=== PATIENT | female | born 1945 | race Caucasian/White ===

== ENCOUNTER 2016-10-31 23:13 | Inpatient (IN) | payer MEDICARE, OTHER ==
[2016-10-31] MEDS ORDERED: IPRATROPIUM/ALBUTEROL 0.5-2.5 MG/3 ML AMPUL NEB ONE (23:22)
--- NOTE | 2016-10-31 23:23 | ER Document Report ---
ED Respiratory Problem - General Mode of Arrival: Medic Information source: Patient, Emergency Med Personnel TRAVEL OUTSIDE OF THE [place] IN LAST 30 DAYS: No - HPI Patient complains to provider of: Short of breath Onset: Last week Duration: Worse/persistent Context: Hx COPD Short of Breath: Mild Associated symptoms: Fever, Sore Throat, Other - Nasal congestion Similar symptoms previously: Yes Recently seen / treated by doctor: Yes <CARLO GARNER - Last Filed: 11/01/16 00:10> <FROYLAN HSU - Last Filed: 11/01/16 05:23> - General Stated Complaint: DIFFICULTY BREATHING Notes: Patient is a 71-year-old female that presents to the emergency department today with complaints of shortness of breath 1 week. Patient went to an urgent care today for shortness of breath and was started on prednisone and azithromycin. Patient states her shortness of breath is much worse with exertion. Patient states she is on 2L of home O2 daily. EMS reports on arrival, the patient had an oxygen saturation 92%. EMS administered 1 duoneb and 1 Solu-Medrol in route. Patient states she had a "low-grade fever" at home along with nasal congestion and a sore throat. Patient is in mild respiratory distress. (CARLO GARNER) - Related Data Allergies/Adverse Reactions: ciprofloxacin [From Cipro] Allergy (Intermediate, Verified 11/01/16 00:27) ciprofloxacin HCl [From Cipro] Allergy (Intermediate, Verified 11/01/16 00:27) clindamycin [Clindamycin] Allergy (Intermediate, Verified 11/01/16 00:27) Past Medical History - General Information source: Patient, [facility] Records - Social History Smoking Status: Current Every Day Smoker Cigarette use (# per day): Yes Frequency of alcohol use: None Drug Abuse: None Lives with: Family Family History: Reviewed & Not Pertinent, DM Pulmonary Medical History: Reports: Hx Asthma, Hx COPD, Hx Pneumonia Endocrine Medical History: Reports: Hx Diabetes Mellitus Type 2 Musculoskeltal Medical History: Reports Hx Arthritis Psychiatric Medical History: Reports: Hx Depression Past Surgical History: Reports: Hx Abdominal Surgery - lap band, bowel resection , Hx Appendectomy, Hx Breast Surgery - reduction, Hx Cholecystectomy, Hx Hysterectomy, Hx Thyroid Surgery - thyroidectomy - Immunizations Hx Diphtheria, Pertussis, Tetanus Vaccination: Yes - 05/18/13 Hx Pneumococcal Vaccination: 05/18/13 <CARLO GARNER - Last Filed: 11/01/16 00:10> Review of Systems - Review of Systems Constitutional: See HPI, Fever EENT: See HPI, Nose congestion, Throat pain Cardiovascular: No symptoms reported Respiratory: See HPI, Short of breath Gastrointestinal: No symptoms reported Genitourinary: No symptoms reported Female Genitourinary: No symptoms reported Musculoskeletal: No symptoms reported Skin: No symptoms reported Hematologic/Lymphatic: No symptoms reported Neurological/Psychological: No symptoms reported -: Yes All other systems reviewed and negative <CARLO GARNER - Last Filed: 11/01/16 00:10> Physical Exam - Vital signs Interpretation: Tachycardic <CARLO GARNER - Last Filed: 11/01/16 00:10> <FROYLAN HSU - Last Filed: 11/01/16 05:23> - Vital signs Vitals: Temp 99.4 F 10/31/16 23:20 (FROYLAN HSU) - Notes Notes: Physical Exam: General: Alert, appears to be in mild distress secondary to shortness of breath. HEENT: Normocephalic. Atraumatic. PERRL. Extraocular movements intact. Oropharynx clear. Neck: Supple. Non-tender. Respiratory: Mild respiratory distress. Wheezing throughout. Mild retractions. Decreased breath sounds at the bases bilaterally. Cardiovascular: Tachycardic, regular rhythm. Abdominal: Normal Inspection. Non-tender. No distension. Normal Bowel Sounds. Back: Non-tender. No deformity or step off. Extremities: Moves all four extremities. Upper extremities: Normal inspection. Normal ROM. Lower extremities: Normal inspection. No edema. Normal ROM. Neurological: Normal cognition. AAOx4. Normal speech. Psychological: Normal affect. Normal Mood. Skin: Warm. Dry. Normal color. (CARLO GARNER) Course - Laboratory Result Diagrams: 10/31/16 23:40 10/31/16 23:40 <CARLO GARNER - Last Filed: 11/01/16 00:10> - Laboratory Result Diagrams: 10/31/16 23:40 10/31/16 23:40 <FROYLAN HSU - Last Filed: 11/01/16 05:23> - Re-evaluation Re-evalutation: 11/01/16 Patient with COPD exacerbation, hypoxia, a right lower lobe pneumonia. Continues to wheeze despite DuoNeb, Solu-Medrol, and magnesium. Has failed outpatient treatment with azithromycin. Allergy to Levaquin. Patient given cefepime and doxycycline. Blood culture sent. Patient will be admitted to the hospital service. Discussed with daughter who agrees with this plan. Stable time of admission. (FROYLAN HSU) - Vital Signs Vital signs: Temp Pulse Resp BP Pulse Ox 98.0 F 96 25 H 114/65 95 11/01/16 04:04 11/01/16 04:04 11/01/16 04:04 11/01/16 04:04 11/01/16 04:04 (FROYLAN HSU) - Laboratory Laboratory results interpreted by me: 10/31/16 10/31/16 10/31/16 23:40 23:40 23:40 Hgb 9.4 L Hct 30.5 L MCV 69 L MCH 21.2 L MCHC 30.9 L RDW 20.3 H Carbon Dioxide 32 H Glucose 113 H POC Glucose Iron < 10 L Ferritin 10.60 L 11/01/16 00:46 Hgb Hct MCV MCH MCHC RDW Carbon Dioxide Glucose POC Glucose 186 H Iron Ferritin (FROYLAN HSU) Critical Care Note - Critical Care Note Total time excluding time spent on procedures (mins): 45 - evaluation and management of respiratory distress, multiple re-evaluations, hypoxia, pneumonia , counseling of patient, coordination of admission <FROYLAN HSU - Last Filed: 11/01/16 05:23> Discharge <CARLO GARNER - Last Filed: 11/01/16 00:10> - Discharge Admitting Provider: Hospitalist Unit Admitted: IMCU <FROYLAN HSU - Last Filed: 11/01/16 05:23> - Discharge Clinical Impression: COPD exacerbation, Hypoxia, Possible pneumonia Condition: Stable Disposition: ADMITTED INPATIENT Scribe Attestation: 11/01/16 05:22 I personally performed the services described in the documentation, reviewed and edited the documentation which was dictated to the scribe in my presence, and it accurately records my words and actions. (FROYLAN HSU) Scribe Documentation - Scribe Written by Scribe:: Mita Torres, 11/01/2016 [id number] acting as scribe for :: Mindy <CARLO GARNER - Last Filed: 11/01/16 00:10>
--- NOTE | 2016-10-31 23:49 | EKG REPORT ---
SEVERITY:- ABNORMAL ECG - SINUS RHYTHM BORDERLINE LEFT AXIS DEVIATION CONSIDER ANTEROSEPTAL INFARCT BORDERLINE PROLONGED QT INTERVAL : Confirmed by: Debra Chávez 31-Oct-2016 23:48:21
[2016-10-31 23:53] LABS: ABSOLUTE EOSINOPHILS # (AUTO) 0.1 10^3/uL (0.0-0.6); ABSOLUTE LYMPHOCYTES (AUTO) 1.3 10^3/uL (0.5-4.7); ABSOLUTE MONOCYTES (AUTO) 0.5 10^3/uL (0.1-1.4); ABSOLUTE NEUT (AUTO) 6.6 10^3/uL (1.7-8.2); BASOPHILS % (AUTO) 0.4 % (0-2); EOSINOPHILS % (AUTO) 0.8 % (0-6); HEMATOCRIT 30.5 % (36.0-47.0); HEMOGLOBIN 9.4 g/dL (12.0-15.5); HGB HCT DIFFERENCE -2.3; LYMPHOCYTES % (AUTO) 15.3 % (13-45); MEAN CORPUSCULAR HEMOGLOBIN 21.2 pg (27.0-33.4); MEAN CORPUSCULAR HGB CONC 30.9 g/dL (32.0-36.0); MEAN CORPUSCULAR VOLUME 69 fl (80-97); MONOCYTES % (AUTO) 6.1 % (3-13); RED BLOOD COUNT 4.45 10^6/uL (3.72-5.28); RED CELL DISTRIBUTION WIDTH 20.3 % (11.5-14.0); SEGMENTED NEUTROPHILS % (AUTO) 77.4 % (42-78); WHITE BLOOD COUNT 8.5 10^3/uL (4.0-10.5)
[2016-11-01] MEDS: MAGNESIUM SULFATE/D5W 100 ML IV SCH ×2 (00:02→00:42)
[2016-11-01 00:11] LABS: ALANINE AMINOTRANSFERASE 14 U/L (9-52); ALBUMIN 3.5 g/dL (3.5-5.0); ALKALINE PHOSPHATASE 66 U/L (38-126); ANION GAP 6 (5-19); ASPARTATE AMINO TRANSFERASE 15 U/L (14-36); BILIRUBIN,TOTAL 0.4 mg/dL (0.2-1.3); BLOOD UREA NITROGEN 8 mg/dL (7-20); CALCIUM 8.5 mg/dL (8.4-10.2); CARBON DIOXIDE 32 mmol/L (22-30); CHLORIDE 104 mmol/L (98-107); CREATININE RESULT 0.53 mg/dL (0.52-1.25); GLUCOSE 113 mg/dL (75-110); POTASSIUM 3.8 mmol/L (3.6-5.0); TOTAL PROTEIN 6.4 g/dL (6.3-8.2)
[2016-11-01 00:12] LABS: PROTHROMBIN TIME 14.3 SEC (11.4-15.4)
[2016-11-01] MEDS ORDERED: IPRATROPIUM/ALBUTEROL 0.5-2.5 MG/3 ML AMPUL NEB ONE (01:37)
[2016-11-01] MEDS ORDERED: CEFEPIME 2 GM/D5W RTU 50 ML IV ONE (01:38)
[2016-11-01 01:41] LABS: APPEARANCE,URINE CLEAR; BILIRUBIN,URINE NEGATIVE (NEGATIVE); GLUCOSE, URINE NEGATIVE (NEGATIVE); KETONES,URINE NEGATIVE (NEGATIVE); LEUKOCYTE ESTERASE,URINE NEGATIVE (NEGATIVE); NITRITE,URINE NEGATIVE (NEGATIVE); PROTEIN,URINE NEGATIVE (NEGATIVE); UROBILINOGEN,URINE NEGATIVE mg/dL (<2.0)
[2016-11-01 01:47] LABS: VENOUS BLOOD BASE EXCESS 3.3 mmol/L; VENOUS BLOOD HCO3 29.7 mmol/L (20-32); VENOUS BLOOD PCO2 54.1 mmHg (35-63); VENOUS BLOOD PH 7.36 (7.30-7.42)
[2016-11-01] MEDS ORDERED: DOXYCYCLINE HYCLATE INJ 100 MG VIAL IV ONE (01:56)
[2016-11-01] MEDS ORDERED: DOCUSATE SODIUM 100 MG CAPSULE PO PRN (02:00)
[2016-11-01] MEDS ORDERED: INSULIN LISPRO 100 UNIT/ML 3 ML VIAL SUBCUT PRN (02:02)
[2016-11-01] MEDS ORDERED: GUAIFENESIN SYRP 200 MG/10 ML UDC PO PRN (02:02)
[2016-11-01] MEDS ORDERED: DEXTROSE 40% GEL 15 GM TUBE PO PRN ×2 (02:02)
[2016-11-01] MEDS ORDERED: DEXTROSE 50%-WATER 25 GM/50 ML DISP.SYRIN IV PRN ×2 (02:02)
[2016-11-01] MEDS ORDERED: GLUCAGON,HUMAN RECOMB 1 MG INJ IM PRN (02:02)
[2016-11-01] MEDS ORDERED: ACETAMINOPHEN 325 MG TABLET PO PRN (02:02)
[2016-11-01] MEDS ORDERED: CEFEPIME 2 GM/D5W RTU 2 GM/50 ML RTUPB IV ONE (02:06)
[2016-11-01] MEDS ORDERED: PREDNISONE 20 MG TABLET PO SCH (02:15)
[2016-11-01 03:54] LABS: FOLATE 7.55 ng/mL (>2.76)
[2016-11-01] MEDS ORDERED: HEPARIN SOD (PORCINE) 5,000 UNIT/ML 1 ML SYRINGE SUBCUT SCH (06:00)
[2016-11-01] MEDS ORDERED: LEVOTHYROXINE SODIUM 0.15 MG TABLET PO SCH (06:00)
--- NOTE | 2016-11-01 06:08 | PDOC H&P ---
History of Present Illness Admission Date/PCP: 11/01/16 02:02 Patient complains of: Shortness of breath and cough History of Present Illness: REBA LYN is a 71 year old female with a past medical history of COPD and home oxygen dependence, who had been her usual state of health until approximately 24 hours prior to presentation recently returning from vacation and concerned for exposure to ill contacts developing pharyngitis and a nonproductive cough she sought evaluation with primary care who initiated azithromycin of the last 3 days without significant improvement prompting his seek evaluation emergency room where she's found to have a COPD exacerbation and referred to the hospitalist for admission. Past Medical History Cardiac Medical History: Denies: Coronary Artery Disease, Myocardial Infarction, Hypertension Pulmonary Medical History: Reports: Asthma, Chronic Obstructive Pulmonary Disease (COPD), Pneumonia Denies: Bronchitis Neurological Medical History: Denies: Seizures Endocrine Medical History: Reports: Diabetes Mellitus Type 2 Musculoskeltal Medical History: Reports: Arthritis Psychiatric Medical History: Reports: Depression, Tobacco Dependency Hematology: Denies: Anemia Past Surgical History Past Surgical History: Reports: Appendectomy, Cholecystectomy, Hysterectomy Social History Lives with: Family Smoking Status: Current Every Day Smoker Cigarettes Packs Per Day: 1 Drugs: None - Advance Directive Resuscitation Status: Full Code Family History Family History: Reviewed & Not Pertinent, COPD, DM Parental Family History Reviewed: Yes Children Family History Reviewed: Yes Sibling(s) Family History Reviewed.: Yes Medication/Allergy Home Medications: Levothyroxine Sodium [Synthroid 150 Mcg Tablet] 150 mcg PO DAILY 07/11/13 Trazodone HCl [Desyrel] 300 mg PO DAILY 07/11/13 Azithromycin [Zithromax 250 mg Tablet] 250 mg PO ASDIR PRN #6 tablet 07/22/16 Prednisone [Deltasone 20 mg Tablet] 2 tab PO DAILY 4 Days 07/22/16 Allergies/Adverse Reactions: ciprofloxacin [From Cipro] Allergy (Intermediate, Verified 11/01/16 00:27) ciprofloxacin HCl [From Cipro] Allergy (Intermediate, Verified 11/01/16 00:27) clindamycin [Clindamycin] Allergy (Intermediate, Verified 11/01/16 00:27) Physical Exam Vital Signs: Temp Pulse Resp BP Pulse Ox 98.0 F 96 25 H 114/65 95 11/01/16 04:04 11/01/16 04:04 11/01/16 04:04 11/01/16 04:04 11/01/16 04:04 Results Impressions: Chest X-Ray 11/01/16 00:00 IMPRESSION: No acute radiographic finding in the chest. Assessment & Plan - Diagnosis (1) Acute exacerbation of chronic bronchitis Is this a current diagnosis for this admission?: YesPlan: Empiric antibiotics symptomatic management consider repeat chest imaging. (2) COPD exacerbation Is this a current diagnosis for this admission?: YesPlan: Observed on a monitored bed albuterol Atrovent nebulizer, prednisone, incentive spirometry, ambulation. - Time Time Spent: 30 to 50 Minutes
[2016-11-01 06:58] LABS: HEMATOCRIT 32.4 % (36.0-47.0); HEMOGLOBIN 9.8 g/dL (12.0-15.5); MEAN CORPUSCULAR HEMOGLOBIN 20.8 pg (27.0-33.4); MEAN CORPUSCULAR HGB CONC 30.3 g/dL (32.0-36.0); MEAN CORPUSCULAR VOLUME 69 fl (80-97); RED BLOOD COUNT 4.71 10^6/uL (3.72-5.28); RED CELL DISTRIBUTION WIDTH 19.9 % (11.5-14.0); WHITE BLOOD COUNT 8.2 10^3/uL (4.0-10.5)
[2016-11-01 07:13] LABS: ANION GAP 11 (5-19); BLOOD UREA NITROGEN 6 mg/dL (7-20); CALCIUM 8.9 mg/dL (8.4-10.2); CARBON DIOXIDE 27 mmol/L (22-30); CHLORIDE 106 mmol/L (98-107); CREATININE RESULT 0.45 mg/dL (0.52-1.25); GLUCOSE 176 mg/dL (75-110); POTASSIUM 3.8 mmol/L (3.6-5.0); SODIUM 144.2 mmol/L (137-145)
[2016-11-01 07:17] LABS: BASOPHILS % (MANUAL) 0 % (0-2); EOSINOPHILS % (MANUAL) 0 % (0-6); LYMPHOCYTES % (MANUAL) 2 % (13-45); TOTAL CELLS COUNTED 100
[2016-11-01 07:19] LABS: ANISOCYTOSIS 2+; MICROCYTOSIS 2+; OVALOCYTES SLIGHT; POIKILOCYTOSIS SLIGHT; TOXIC GRANULATION SLIGHT
[2016-11-01] MEDS ORDERED: METFORMIN HCL 500 MG TABLET PO SCH (08:00)
[2016-11-01] MEDS: IPRATROPIUM/ALBUTEROL 0.5-2.5 MG/3 ML AMPUL NEB SCH ×2 (08:27→13:31)
[2016-11-01] MEDS ORDERED: SERTRALINE HCL 50 MG TABLET PO SCH (10:00)
[2016-11-01] MEDS ORDERED: IRON POLYSACCHARIDES COMPLEX 150 MG CAPSULE PO SCH ×2 (10:00)
[2016-11-01] MEDS ORDERED: TRAZODONE HCL 50 MG TABLET PO SCH ×2 (10:00→22:00)
[2016-11-01] MEDS ORDERED: GUAIFENESIN 600 MG TABLET.SA PO SCH (10:00)
[2016-11-01] MEDS ORDERED: CEFEPIME HCL 2 GM in DEXTROSE 5%-WATER 50 ML IV SCH (10:00)
[2016-11-01] MEDS ORDERED: (PENDING PHARMACY ID) (Trazodone Hcl [Desyrel] 300 MG) PO SCH ×2 (10:00→22:00)
[2016-11-01] MEDS ORDERED: CEFEPIME 2 GM/D5W RTU 50 ML IV SCH (10:00)
[2016-11-01] MEDS ORDERED: (PENDING PHARMACY ID) (Metformin Hcl [Glucophage Xr 500 Mg Tablet] 500 MG) PO SCH (10:00)
[2016-11-01] MEDS ORDERED: TIOTROPIUM BROMIDE DPI 5 CAP/KIT (18 MCG/CAP) IH ONE (13:30)
[2016-11-01 14:50] VITALS: BP 127/61
--- NOTE | 2016-11-01 15:19 | PDOC DISCHARGE SUMMARY ---
General - Admit/Disc Date/PCP Admission Date/Primary Care Provider: 11/01/16 02:02 Discharge Date: 11/01/16 - Additional Information Resuscitation Status: Full Code Discharge Activity: Activity As Tolerated Home Medications: Acetaminophen [Tylenol 325 mg Tablet] 650 mg PO Q4HP PRN tablet 11/01/16 Budesonide/Formoterol Fumarate [Symbicort HFA 160-4.5 mcg Inhaler 6 gm] 2 puff IH Q12 #1 inhaler 11/01/16 Doxycycline Hyclate [Vibramycin 100 mg Tablet] 100 mg PO Q12 #20 tablet Guaifenesin [Mucinex Sr 600 mg Tablet.sa] 600 mg PO Q12 tablet.sa 11/01/16 Iron Polysaccharides Complex [Nu-Iron 150 Capsule] 150 mg PO DAILY #30 capsule 11/01/16 Levothyroxine Sodium [Synthroid 0.075 mg Tablet] 0.075 mg PO QHS tablet Levothyroxine Sodium [Synthroid] 175 mcg PO QHS 11/01/16 Metformin HCl [Glucophage] 500 mg PO BID #1 tablet 11/01/16 Sertraline HCl [Zoloft 50 mg Tablet] 50 mg PO DAILY tablet 11/01/16 Trazodone HCl [Desyrel] 300 mg PO QHS 11/01/16 History of Present Illness Patient complains of: Increasing shortness of breath, cough and wheezing History of Present Illness: REBA LYN is a 71 year old female who presents to [facility] ER, with complaints of increasing dyspnea and shortness of breath. She states she was in her usual state of health until approximately 24 hours prior to her arrival. She had just recently returned from a vacation in [place] and was concerned for exposure to ill contacts. She had is sinus drainage sore throat and low-grade fever. She was seen yesterday by her primary care provider and prescribed Z-Victor Hugo and prednisone taper. She had taken 1 dose of the azithromycin and 1 dose of prednisone before her arrival here. She was found to be saturating 90% on 2 L she does wear oxygen 24 7. She normally wears 2 L/m. She has had a productive cough which has worsened over the period of the day. She does have some expiratory wheezing as well. She was given nebulizer treatments and referred to the hospitalist for admission. Hospital Course Hospital Course: The patient was referred to the hospitalist service for admission. She is placed on CPAP overnight. This morning she feels much improved, she is no longer wheezing or dyspnea. She is asking to be discharged home. We had the nurse ambulate her with her oxygen on at 2 L her oxygen saturation stayed greater than 93%. She did not become tachycardic. Therefore we'll discharge her home. We have added doxycycline 100 mg twice a day for the next 10 days. Complete her azithromycin and prednisone taper. We also added symbicort inhaler bid . Physical Exam Vital Signs: Temp Pulse Resp BP Pulse Ox 97.9 F 85 16 127/61 H 98 11/01/16 14:45 11/01/16 14:45 11/01/16 14:45 11/01/16 14:45 11/01/16 14:45 Intake & Output 10/31/16 11/01/16 11/02/16 06:59 06:59 06:59 Intake Total 450 Output Total 550 Balance -100 Weight 68.3 kg General appearance: PRESENT: no acute distress, well-developed, well-nourished Head exam: PRESENT: atraumatic, normocephalic Eye exam: PRESENT: conjunctiva pink, EOMI, PERRLA. ABSENT: scleral icterus Ear exam: PRESENT: normal external ear exam Mouth exam: PRESENT: moist, neck supple, tongue midline Throat exam: PRESENT: post pharyngeal erythema Respiratory exam: PRESENT: clear to auscultation enrique. ABSENT: rales, rhonchi, wheezes Cardiovascular exam: PRESENT: RRR. ABSENT: diastolic murmur, rubs, systolic murmur Pulses: PRESENT: normal dorsalis pedis pul Vascular exam: PRESENT: normal capillary refill GI/Abdominal exam: PRESENT: normal bowel sounds, soft. ABSENT: distended, guarding, mass, organolmegaly, rebound, tenderness Rectal exam: PRESENT: deferred Extremities exam: PRESENT: full ROM. ABSENT: calf tenderness, clubbing, pedal edema Neurological exam: PRESENT: alert, awake, oriented to person, oriented to place , oriented to time, oriented to situation, CN II-XII grossly intact. ABSENT: motor sensory deficit Psychiatric exam: PRESENT: appropriate affect, normal mood. ABSENT: homicidal ideation, suicidal ideation Skin exam: PRESENT: dry, intact, warm. ABSENT: cyanosis, rash Results Laboratory Results: 11/01/16 06:33 11/01/16 06:33 11/01/16 11/01/16 06:33 06:33 WBC 8.2 RBC 4.71 Hgb 9.8 L Hct 32.4 L MCV 69 L MCH 20.8 L MCHC 30.3 L RDW 19.9 H Plt Count 304 Seg Neutrophils % Not Reportable Lymphocytes % Not Reportable Monocytes % Not Reportable Eosinophils % Not Reportable Basophils % Not Reportable Absolute Neutrophils Not Reportable Absolute Lymphocytes Not Reportable Absolute Monocytes Not Reportable Absolute Eosinophils Not Reportable Absolute Basophils Not Reportable Sodium 144.2 Potassium 3.8 Chloride 106 Carbon Dioxide 27 Anion Gap 11 BUN 6 L Creatinine 0.45 L Est GFR ( Amer) > 60 Est GFR (Non-Af Amer) > 60 Glucose 176 H Calcium 8.9 Impressions: Chest X-Ray 11/01/16 00:00 IMPRESSION: No acute radiographic finding in the chest. Qualifiers PATEINT BEING DISCHARGED WITH ANY OF THE FOLLOWING DIAGNOSIS?: No Plan Discharge Plan: Discharge home with family Time Spent: Less than 30 Minutes
[2016-11-01] MEDS ORDERED: DOXYCYCLINE HYCLATE 100 MG TABLET PO SCH (22:00)
[2016-11-01] MEDS ORDERED: LEVOTHYROXINE SODIUM 0.075 MG TABLET PO SCH (22:00)
[2016-11-01] MEDS ORDERED: (PENDING PHARMACY ID) (Levothyroxine Sodium [Synthroid] 175 MCG) PO SCH (22:00)
[2016-11-01] MEDS ORDERED: LEVOTHYROXINE SODIUM 0.1 MG TABLET PO SCH (22:00)
[2016-11-02] MEDS ORDERED: TIOTROPIUM BROMIDE DPI 5 CAP/KIT (18 MCG/CAP) IH SCH (10:00)
== END 2016-11-01 16:30 | disposition home or self-care (01) | DRG 192 ==
LOC: ER 23:13 → EH 11-01 02:02 → UNDOADMIN 11-01 02:13 → 4N 11-01 04:58
PROVIDERS: ADMIT Internal Medicine; ATTEND Internal Medicine
PROC: 5A09357 Assistance with Respiratory Ventilation, Less than 24 Consecutive Hours, Continuous Positive Airway Pressure (ICD-10-PCS; principal; 2016-11-01)
DX: J44.1 Chronic obstructive pulmonary disease with (acute) exacerbation (principal); D50.9 Iron deficiency anemia, unspecified; R09.02 Hypoxemia; Z99.81 Dependence on supplemental oxygen; J45.909 Unspecified asthma, uncomplicated; D11.9 Benign neoplasm of major salivary gland, unspecified; M19.90 Unspecified osteoarthritis, unspecified site; F17.210 Nicotine dependence, cigarettes, uncomplicated; Z90.49 Acquired absence of other specified parts of digestive tract; Z90.710 Acquired absence of both cervix and uterus; Z88.1 Allergy status to other antibiotic agents; Z83.3 Family history of diabetes mellitus
CPT/HCPCS: 36415; 71010; 80048; 80053; 81001; 82607; 82728; 82746; 82803; 82962; 83540; 83550; 83605; 83880; 84484; 85025; 85045; 85610; 87040; 87086; 93005; 93010; 94640; 94660; 94799; 96365; 99291; J0692; J1644; J3475; J3490; J7512; J7620

== ENCOUNTER 2017-01-22 08:40 | Day surgery (SDC) | payer MEDICARE, OTHER ==
[~2017-01-22 08:40] MED LIST: PROPOFOL INJ 200 MG/20 ML VIAL IV ONE
[2017-01-22 11:17] VITALS: BP 108/61
--- NOTE | 2017-01-22 14:46 | Operative Report ---
Operative Report DATE OF SURGERY: 01/22/17 Operative Report: The risks, benefits and alternatives of the procedure including risks of bleeding, perforation requiring surgery are explained to the patient detail and informed consent is obtained. Patient is taken back to the endoscopy suite and placed in a left, lateral decubital position. Timeout is called. Propofol medications administered. A rectal examination is done which did not reveal any masses, tears or fissures. An Olympus videoscope was inserted into the patient's rectum. The scope was then gradually advanced all the way to the cecum. The cecum was identified by the usual anatomical landmarks including the ileocecal valve as well as the appendiceal office. Photodocumentation is obtained. Prep is not good. This an oily residue throughout the colon. Visualization is largely poor. The scope was then sequentially pulled back via the rest segments of the colon including the ascending colon, hepatic flexure, transverse colon, splenic flexure, descending colon and finally into the rectosigmoid portions of the colon. Retroflexion maneuvers performed. The risks benefits and alternatives of the procedure explained to the patient in detail and informed consent is obtained that GIF Olympus video scope was inserted into the patient's mouth and hypopharynx the esophagus is identified intubated and insufflated the scope was then advanced through the esophagus stomach and duodenum retroflexion maneuver is done the esophagus stomach and first and second portions of the duodenum examined PREOPERATIVE DIAGNOSIS: Possible history of AVM. Iron deficiency anemia, rule out GI bleed. History of polyps POSTOPERATIVE DIAGNOSIS: Poor visualization in the colon. Diverticulosis. Internal hemorrhoids. Right-sided inflammation status post biopsy. 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 Gastritis, biopsy rule out Helicobacter pylori OPERATION: Colonoscopy with biopsy. EGD with biopsy SURGEON: KENYATTA ORONA ANESTHESIA: LMAC TISSUE REMOVED OR ALTERED: Right-sided colon specimens obtained. Gastric specimens obtained rule out Helicobacter pylori. Esophageal specimens obtained rule out Simpson's esophagus. Did not see any AVMs that were present. COMPLICATIONS: None. ESTIMATED BLOOD LOSS: none. INTRAOPERATIVE FINDINGS: As described above. PROCEDURE: Patient tolerated procedure well. No immediate postprocedure complications are noted. Patient discharged in good condition. Discharge date 01/22/2017. Discharge diet: Regular. Discharge activity: Regular. We'll await on pathology. 2-3 week follow-up to discuss findings. Patient is instructed to call the office or proceed to the emergency room should there be any further polyps or questions. I would recommend follow-up surveillance colonoscopy next year with alternative prep for repeat evaluation given the poor visualization during this colonoscopy. That may have to be done earlier if iron deficiency anemia persists.
== END 2017-01-22 11:20 | disposition home or self-care (01) ==
LOC: END 08:40
PROVIDERS: ATTEND Internal Medicine Gastroenterology
PROC: 0DBE8ZX Excision of Large Intestine, Via Natural or Artificial Opening Endoscopic, Diagnostic (ICD-10-PCS; 2017-01-22)
PROC: 0DB68ZX Excision of Stomach, Via Natural or Artificial Opening Endoscopic, Diagnostic (ICD-10-PCS; principal; 2017-01-22 10:30)
PROC: 0DB58ZX Excision of Esophagus, Via Natural or Artificial Opening Endoscopic, Diagnostic (ICD-10-PCS; 2017-01-22 10:30)
DX: K52.9 Noninfective gastroenteritis and colitis, unspecified (principal); K29.70 Gastritis, unspecified, without bleeding; K22.9 Disease of esophagus, unspecified; K64.8 Other hemorrhoids; K57.30 Diverticulosis of large intestine without perforation or abscess without bleeding; D50.0 Iron deficiency anemia secondary to blood loss (chronic); K21.9 Gastro-esophageal reflux disease without esophagitis; Q27.30 Arteriovenous malformation, site unspecified; Z98.84 Bariatric surgery status; E11.9 Type 2 diabetes mellitus without complications; E78.5 Hyperlipidemia, unspecified; F17.210 Nicotine dependence, cigarettes, uncomplicated; J44.9 Chronic obstructive pulmonary disease, unspecified; E89.0 Postprocedural hypothyroidism; Z79.84 Long term (current) use of oral hypoglycemic drugs; Z79.51 Long term (current) use of inhaled steroids; Z79.1 Long term (current) use of non-steroidal anti-inflammatories (NSAID); Z79.899 Other long term (current) drug therapy; Z88.1 Allergy status to other antibiotic agents; Z90.49 Acquired absence of other specified parts of digestive tract
CPT/HCPCS: 43239; 45380; 82962; 88305 ×2; J2704; 740

== ENCOUNTER 2017-02-06 11:48 | Day surgery (SDC) | payer MEDICARE, OTHER ==
[~2017-02-06 11:48] MED LIST changes: +DIPHENHYDRAMINE HCL 50 MG/ML VIAL ONE; +EPINEPHRINE INJ 1 MG/10 ML DISP.SYRIN ONE; +FLUMAZENIL INJ 0.5 MG/5 ML VIAL IV ONE; +GLUCAGON,HUMAN RECOMB 1 MG INJ ONE; +NALOXONE HCL INJ/PF 0.4 MG/1 ML SDV ONE; +ONDANSETRON HCL INJ/PF 4 MG/2 ML SDV ONE; -PROPOFOL INJ 200 MG/20 ML VIAL IV ONE
[2017-02-06] MEDS: MIDAZOLAM 2 MG/2 ML INJ ONE ×2 (12:33→12:38)
[2017-02-06] MEDS: FENTANYL CITRATE INJ/PF 100 MCG/2 ML AMPUL ONE ×3 (12:35→12:41)
[2017-02-06 13:51] VITALS: BP 118/57
--- NOTE | 2017-02-06 14:00 | Operative Report ---
Operative Report DATE OF SURGERY: 02/06/17 Operative Report: The risks benefits and alternatives of the procedure explained to the patient in detail and informed consent is obtained. A GIF Olympus video scope was inserted into the patient's mouth and hypopharynx ,the esophagus is identified intubated and insufflated , the scope was then advanced through the esophagus stomach and duodenum, retroflexion maneuver is done ,the esophagus stomach and first and second portions of the duodenum examined PREOPERATIVE DIAGNOSIS: Simpson's esophagus POSTOPERATIVE DIAGNOSIS: There is esophagus status post ablation OPERATION: EGD with the patient SURGEON: KENYATTA ORONA ANESTHESIA: Moderate Sedation - 4 mg of Versed, 100 mcg of fentanyl. Conscious sedation monitoring time 30 minutes. TISSUE REMOVED OR ALTERED: None. COMPLICATIONS: None. ESTIMATED BLOOD LOSS: None. 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 Gastritis improved PROCEDURE: Patient tolerated the procedure well. No immediate postprocedure complications are noted. Patient discharged in good condition. Discharge date 02/06/2017. Discharge diet: Regular. Discharge activity: Regular. 2-3 week follow-up to discuss findings. Patient is instructed to call the office or proceed to the emergency room should there be any further problems or questions. We will wait on biopsies.
== END 2017-02-06 13:55 | disposition home or self-care (01) ==
LOC: END 11:48
PROVIDERS: ATTEND Internal Medicine Gastroenterology
PROC: 0D558ZZ Destruction of Esophagus, Via Natural or Artificial Opening Endoscopic (ICD-10-PCS; principal; 2017-02-06 12:00)
DX: K22.719 Barrett's esophagus with dysplasia, unspecified (principal); E11.9 Type 2 diabetes mellitus without complications; J44.9 Chronic obstructive pulmonary disease, unspecified; K21.9 Gastro-esophageal reflux disease without esophagitis; F41.1 Generalized anxiety disorder; F32.4 Major depressive disorder, single episode, in partial remission; E78.5 Hyperlipidemia, unspecified; F17.210 Nicotine dependence, cigarettes, uncomplicated; E89.0 Postprocedural hypothyroidism; Z79.4 Long term (current) use of insulin; Z98.84 Bariatric surgery status; Z90.49 Acquired absence of other specified parts of digestive tract; Z79.51 Long term (current) use of inhaled steroids; Z79.1 Long term (current) use of non-steroidal anti-inflammatories (NSAID); Z79.84 Long term (current) use of oral hypoglycemic drugs; Z79.899 Other long term (current) drug therapy; Z88.1 Allergy status to other antibiotic agents
CPT/HCPCS: 43270; 82962; J2250; J3010; J0171; J1200; J1610; J2310; J2405; J3490

== ENCOUNTER 2019-02-20 10:33 | Day surgery (SDC) | payer MEDICARE, OTHER ==
[~2019-02-20 10:33] MED LIST changes: -DIPHENHYDRAMINE HCL 50 MG/ML VIAL ONE; -EPINEPHRINE INJ 1 MG/10 ML DISP.SYRIN ONE; -FLUMAZENIL INJ 0.5 MG/5 ML VIAL IV ONE; -GLUCAGON,HUMAN RECOMB 1 MG INJ ONE; +KETOROLAC TROMETHAMINE 0.45% 4 DROP/0.4 ML DROPERETTE OS PRN; +MIDAZOLAM 2 MG/2 ML INJ ONE; -NALOXONE HCL INJ/PF 0.4 MG/1 ML SDV ONE; -ONDANSETRON HCL INJ/PF 4 MG/2 ML SDV ONE
[2019-02-20] MEDS: TETRACAINE HCL 0.5% OPH SOLN 4 ML OS PRN ×4 (11:25→11:57)
[2019-02-20] MEDS: TROPICAMIDE 1% OPH SOLN 3 ML OS PRN ×3 (11:25→11:50)
[2019-02-20] MEDS: BESIFLOXACIN HCL 0.6% OPH SUSP 5 ML BOTTLE OS PRN ×4 (11:26→12:25)
[2019-02-20] MEDS: CYCLOPENTOLATE 0.2%/PHENYLEPHRINE 1% OPH SOLN 2 ML OS PRN ×3 (11:26→11:50)
[2019-02-20] MEDS: EPINEPHRINE INJ/PF 1 MG/1 ML AMPULE ONE ×2 (12:11)
[2019-02-20] MEDS: CHONDR SU A NA/HYALUR INTRAOC KIT (SURGICARE) ONE ×2 (12:11)
[2019-02-20] MEDS: LIDOCAINE 1%/PHENYLEPHRINE 1.5% 1 ML VIAL ONE ×2 (12:11)
[2019-02-20] MEDS: DORZOLAMIDE HCL 2%/TIMOLOL MALEAT 0.5% OPH SOLN 10 ML OS PRN ×2 (12:25)
--- NOTE | 2019-02-20 20:30 | [facility] OPERATIVE REPORT E ---
[facility] Operative Report NAME: REBA LYN AGE: 73Y DATE OF SURGERY: 02/20/2019 ROOM: PREOPERATIVE DIAGNOSIS: CATARACT LEFT EYE. POSTOPERATIVE DIAGNOSIS: CATARACT LEFT EYE. OPERATION: Cataract extraction with Symfony toric intraocular lens implant of the left eye with a toric multifocal lens. SURGEON: ESTEBAN GILLESPIE M.D. ANESTHESIA: Topical. COMPLICATIONS: None. ESTIMATED BLOOD LOSS: None. PROCEDURE: After appropriate consent was obtained and calculations made, the patient was brought back to the operating room where the patient was prepped and draped in sterile fashion. A lid speculum was placed and attention was directed to a paracentesis where a paracentesis blade made a small incision. Viscoelastic was then used to inflate the anterior chamber. Next a 2.4 mm incision was made with the paracentesis blade. A continuous capsulorhexis forceps of approximately 5 mm was done using a cystitome and capsulorhexis forceps. Hydrodissection was carried out to make the lens freely mobile and then a divide and conquer technique was used to remove the lens with a CDE of approximately 10.64. Following this, the remaining cortical material was removed with irrigation/aspiration. After this the patient was then again marked. The marking procedure started in the preoperative holding area where 180 and 0 was marked with a marker. Now that the patient was in the operating room a 360-degree marker was used to kelli the axis at approximately 110 degrees and a toric lens of 21.0 diopters [id number] was injected into the bag after filling with viscoelastic and rotated to 10 degrees. The I/A was used to remove the viscoelastic material and the toric lens appeared to be appropriately aligned. Besivance and cosopt were instilled into the eye. The patient returned to postoperative recovery in stable condition. DICTATING PHYSICIAN: ESTEBAN GILLESPIE M.D. [id number] PHY#: [id number] ID: [id number] JOB#: [id number] ACCT: [id number] cc:ESTEBAN GILLESPIE M.D. > MTDD
--- NOTE | 2019-02-20 20:35 | [facility] DISCHARGE SUMMARY E ---
[facility] Discharge Summary NAME: REBA LYN AGE: 73Y ADMITTED: 02/20/2019 DISCHARGED: This is a 73-year-old female who underwent cataract extraction of the left eye. DIAGNOSIS: Cataract left eye with placement of a Symfony toric IOL. The patient underwent surgery because she was having glare from headlights, making it difficult to drive at night. She should be on a regular diet. No bending at the waist and no heavy lifting. She should use her Besivance, Ilevro, and Durezol at 3:00 p.m. and 8:00 p.m. and sleep with a rigid shield. I will see her for her 1-day postop tomorrow. DICTATING PHYSICIAN: ESTEBAN GILLESPIE M.D. [id number] PHY#: [id number] ID: [id number] JOB#: [id number] ACCT: [id number] cc:ESTEBAN GILLESPIE M.D. >
== END 2019-02-20 13:03 | disposition home or self-care (01) ==
LOC: SC 10:33
PROVIDERS: ATTEND Internal Medicine
DX: H25.13 Age-related nuclear cataract, bilateral (principal); H57.03 Miosis; E07.9 Disorder of thyroid, unspecified; Z79.899 Other long term (current) drug therapy
CPT/HCPCS: 66984; 82962; V2788; J2250; J3490 ×2; A9270; J0171; J2370; 142

== ENCOUNTER 2019-03-27 09:47 | Day surgery (SDC) | payer MEDICARE, OTHER ==
[~2019-03-27 09:47] MED LIST changes: +CHONDR SU A NA/HYALUR INTRAOC KIT (SURGICARE) ONE; +EPINEPHRINE INJ/PF 1 MG/1 ML AMPULE ONE; +KETOROLAC TROMETHAMINE 0.45% 4 DROP/0.4 ML DROPERETTE OD PRN; -KETOROLAC TROMETHAMINE 0.45% 4 DROP/0.4 ML DROPERETTE OS PRN; +LIDOCAINE 1%/PHENYLEPHRINE 1.5% 1 ML VIAL ONE; -MIDAZOLAM 2 MG/2 ML INJ ONE
[2019-03-27] MEDS ORDERED: MIDAZOLAM 2 MG/2 ML INJ ONE ×2 (10:31→11:32)
[2019-03-27] MEDS: TETRACAINE HCL 0.5% OPH SOLN 4 ML OD PRN ×3 (11:20→11:45)
[2019-03-27] MEDS: TROPICAMIDE 1% OPH SOLN 3 ML OD PRN ×3 (11:20→11:39)
[2019-03-27] MEDS: CYCLOPENTOLATE 0.2%/PHENYLEPHRINE 1% OPH SOLN 2 ML OD PRN ×3 (11:20→11:39)
[2019-03-27] MEDS: BESIFLOXACIN HCL 0.6% OPH SUSP 5 ML BOTTLE OD PRN ×4 (11:20→12:10)
[2019-03-27] MEDS: DORZOLAMIDE HCL 2%/TIMOLOL MALEAT 0.5% OPH SOLN 10 ML OD PRN ×2 (12:10)
--- NOTE | 2019-03-28 11:30 | [facility] OPERATIVE REPORT E ---
[facility] Operative Report NAME: REBA LYN AGE: 73Y DATE OF SURGERY: 03/27/2019 ROOM: PREOPERATIVE DIAGNOSIS: CATARACT, RIGHT EYE. POSTOPERATIVE DIAGNOSIS: CATARACT, RIGHT EYE. OPERATION: Cataract extraction with insertion of a Symfony Toric IOL of the right eye. SURGEON: ESTEBAN GILLESPIE M.D. ANESTHESIA: Topical. PROCEDURE: After obtaining appropriate consent, the patient's right eye was prepped and draped in sterile fashion as well as the surgeon in a sterile manner and cataract surgery was started. First a paracentesis blade was used to make a side-port incision. Viscoelastic was used to inflate the anterior chamber. Next a 2.4 mm incision was made with a 2.4 mm blade, clear corneal temporally. A continuous capsulorrhexis was made using a cystotome and Utrata forceps. Following this hydrodissection was carried out to make the lens fully loose and mobile and it was rotated 90 degrees. Following this, a rgovvo-ygy-kradtfb technique was used to phacoemulsify the lens with a CDE of 7.99. The remaining cortex was removed with irrigation/aspiration. Provisc was instilled into the capsular bag to inflate the bag. A [id number], 22.0 diopter lens was placed, rotated to 165 degrees. The remaining viscoelastic material was removed with irrigation/aspiration. Following this, the incision was found to be watertight. Besivance was instilled into the eye and a protective shield was placed over the eye. The patient returned to the postoperative recovery in stable condition. DICTATING PHYSICIAN: ESTEBAN GILLESPIE M.D. [id number] PHY#: [id number] ID: [id number] JOB#: [id number] ACCT: [id number] cc:ESTEBAN GILLESPIE M.D. >
--- NOTE | 2019-03-28 11:35 | [facility] DISCHARGE SUMMARY E ---
[facility] Discharge Summary NAME: REBA LYN AGE: 73Y ADMITTED: 03/27/2019 DISCHARGED: 03/27/2019 FINAL DIAGNOSIS: CATARACT, RIGHT EYE. HISTORY/CLINIC COURSE: This is a 73kyearkold female who underwent cataract extraction of right eye with insertion of a Symfony Toric IOL. She underwent surgery because she was having difficulty with imbalance between both eyes since having surgery done in the left eye. She is to be on a regular diet. No bending at the waist, no heavy lifting. Patient should use her Besivance, Ilevro, and Durezol at 3 p.m. and 8 p.m., and sleep with a rigid shield. I will see her for 1 day postoperative tomorrow. DICTATING PHYSICIAN: ESTEBAN GILLESPIE M.D. [id number] PHY#: [id number] ID: [id number] JOB#: [id number] ACCT: [id number] cc:ESTEBAN GILLESPIE M.D. >
== END 2019-03-27 12:42 | disposition home or self-care (01) ==
LOC: SC 09:47
PROVIDERS: ATTEND Internal Medicine
DX: H25.11 Age-related nuclear cataract, right eye (principal); H57.03 Miosis; Z96.1 Presence of intraocular lens; J44.9 Chronic obstructive pulmonary disease, unspecified; E11.9 Type 2 diabetes mellitus without complications
CPT/HCPCS: 66984; 82962; J2250; J3490 ×2; A9270; J0171; J2370; 142; V2788

== ENCOUNTER 2020-04-18 09:53 | Emergency (ER) | payer MEDICARE, OTHER ==
[2020-04-18 09:59] VITALS: BP 167/93
[2020-04-18] MEDS ORDERED: HYDROCODONE/ACETAMINOPHEN 5-325 MG TABLET PO ONE (10:31)
--- NOTE | 2020-04-18 10:35 | ER Document Report ---
HPI - HPI Time Seen by Provider: 04/18/20 10:28 Pain Level: 4 Notes: CHIEF COMPLAINT: Right shoulder injury HPI: 75-year-old female presenting with right shoulder injury. Patient states that she began having pain in the right shoulder with movement approximately a week ago no specific injury. Saw her primary care provider 3 days ago was diagnosed with possible tendinitis prescribed anti-inflammatories and exercises. States she did have an x-ray at that time which was normal per her doctor. Last night she went to pick something up and felt something "pop or snap" in the right shoulder now with increased pain with any elevation or abduction of the arm. Denies chest pain. Denies shortness of breath. Denies numbness or tingling in the extremity. ROS: See HPI - all other systems were reviewed and are otherwise negative Constitutional: no fever Cardiovascular: no chest pain Resp: no SOB, no cough Musculoskeletal: + extremity pain or swelling Neurological: no numbness/tingling MEDICATIONS: I agree with the patient medications as charted by the RN. ALLERGIES: I agree with the allergies as charted by the RN. PAST MEDICAL HISTORY/PAST SURGICAL HISTORY: Reviewed and agree as charted by RN. SOCIAL HISTORY: Reviewed and agree as charted by RN. FAMILY HISTORY: No significant familial comorbid conditions directly related to patient complaint EXAM: Reviewed vital signs as charted by RN. CONSTITUTIONAL: Alert and oriented and responds appropriately to questions. Well-appearing; well-nourished HEAD: Normocephalic; atraumatic EYES: Conjunctivae clear, sclerae non-icteric ENT: normal nose; no rhinorrhea; moist mucous membranes NECK: Supple without meningismus; non-tender; no cervical lymphadenopathy, no masses CARD: symmetric distal pulses RESP: Normal chest excursion without splinting or tachypnea ABD/GI: non-distended. BACK: The back appears normal EXT: There is limited abduction and rotation of the right arm at the shoulder secondary to complaints of pain in the deltoid region. There is tenderness on palpation in this region. There is no visible swelling. No visible step-off or dislocation clinically. Brachial radial and ulnar pulses are present in the right upper extremity. Asset Analyst are equal with strength 5/5. Sensation is intact in the distal fingertips with capillary refill less than 3 seconds SKIN: Normal color for age and race; warm; dry; good turgor; no acute lesions noted NEURO: Motor and sensory function intact PSYCH: The patient's mood and manner are appropriate. Grooming and personal hygiene are appropriate. MDM: 75-year-old female with injury to the right shoulder. Patient likely had calcific tendinitis and has probably injured this with specific movement today. Will obtain x-ray to evaluate for fracture, will likely need sling, pain management states she can tolerate hydrocodone well and orthopedic follow-up. She follows with Dr. Lopez in [place] - REPRODUCTIVE Reproductive: DENIES: : Past Medical History - Social History Smoking Status: Former Smoker Frequency of alcohol use: None Drug Abuse: None Family History: Reviewed & Not Pertinent, COPD, DM - Past Medical History Cardiac Medical History: Denies: Hx Coronary Artery Disease, Hx Heart Attack, Hx Hypertension Pulmonary Medical History: Reports: Hx Asthma, Hx COPD Denies: Hx Bronchitis, Hx Pneumonia Neurological Medical History: Denies: Hx Cerebrovascular Accident, Hx Seizures Endocrine Medical History: Reports: Hx Diabetes Mellitus Type 2 GI Medical History: Denies: Hx Hepatitis, Hx Hiatal Hernia, Hx Ulcer Musculoskeletal Medical History: Reports Hx Arthritis Psychiatric Medical History: Reports: Hx Depression Infectious Medical History: Denies: Hx Hepatitis Past Surgical History: Reports: Hx Abdominal Surgery - lap band, bowel resection, Hx Appendectomy, Hx Breast Surgery - reduction, Hx Cholecystectomy, Hx Hysterectomy, Hx Thyroid Surgery - thyroidectomy. Denies: Hx Mastectomy, Hx Open Heart Surgery, Hx Pacemaker - Immunizations Hx Diphtheria, Pertussis, Tetanus Vaccination: Yes - 05/18/13 Hx Pneumococcal Vaccination: 05/18/13 Vertical Provider Document - INFECTION CONTROL TRAVEL OUTSIDE OF THE [place] IN LAST 30 DAYS: No Course - Re-evaluation Re-evalutation: 04/18/20 10:49 X-ray on my review shows degenerative changes no definitive fracture will place in a sling for comfort, sling instructions given, follow-up orthopedics - Vital Signs Vital signs: Temp Pulse Resp BP Pulse Ox 97.8 F 76 16 167/93 H 99 04/18/20 09:58 04/18/20 09:58 04/18/20 09:58 04/18/20 09:58 04/18/20 09:58 Procedures - Immobilization Right Shoulder Time completed: 10:52 Pre-Proc Neuro Vasc Exam: Normal Immobilizer type: Sling Performed by: PCT Post-Proc Neuro Vasc Exam: Normal, Unchanged from pre-exam Alignment checked and good: Yes Discharge - Discharge Clinical Impression: Right shoulder injury Qualifiers: Encounter type: initial encounter Qualified Code(s): S49.91XA - Unspecified injury of right shoulder and upper arm, initial encounter Condition: Stable Disposition: HOME, SELF-CARE Instructions: Rotator Cuff Injury ([facility]) Additional Instructions: 1. ice the shoulder twice daily for 10 minutes each time 2. use the sling for comfort during the day only for 2-3 days. Do not sleep in the sling 3. take the arm out of the sling 3-4 times daily and perform gentle range of motion exercises to maintain flexibility in the shoulder 4. medications for pain as directed, watch for balance issues with narcotics 5. follow up with orthopedics for further evaluation and treatment call for appt Prescriptions: Hydrocodone/Acetaminophen [Streetman 5-325 mg Tablet] 1 tab PO Q4 PRN #15 tablet PRN Reason: Referrals: LISSETTE MARQUEZ MD [Primary Care Provider] - Follow up as needed
--- NOTE | 2020-04-18 10:57 | RADIOLOGY REPORT (SQ) ---
EXAM DESCRIPTION: SHOULDER RIGHT 2 OR MORE VIEWS IMAGES COMPLETED DATE/TIME: 04/18/2020 10:46 am REASON FOR STUDY: pain/injury COMPARISON: None. NUMBER OF VIEWS: Three views. TECHNIQUE: Internal rotation, external rotation, and Y view images acquired of the right shoulder. LIMITATIONS: None. FINDINGS: MINERALIZATION: Normal. BONES: No acute fracture. No worrisome bone lesions. JOINTS: No dislocation. VISUALIZED LUNGS AND RIBS: No pneumothorax. No rib fracture. SOFT TISSUES: No radiopaque foreign body. OTHER: No other significant finding. IMPRESSION: NEGATIVE STUDY OF THE RIGHT SHOULDER. NO RADIOGRAPHIC EVIDENCE OF ACUTE INJURY. TECHNICAL DOCUMENTATION: JOB ID: [id number] [employer]- All Rights Reserved Reading location - IP/workstation name: [email or web address]
== END 2020-04-18 11:03 | disposition home or self-care (01) ==
LOC: ER 09:53
DX: S49.91XA Unspecified injury of right shoulder and upper arm, initial encounter (principal); X58.XXXA Exposure to other specified factors, initial encounter; J44.9 Chronic obstructive pulmonary disease, unspecified; E11.9 Type 2 diabetes mellitus without complications; E89.0 Postprocedural hypothyroidism; Z79.899 Other long term (current) drug therapy; Z87.891 Personal history of nicotine dependence; Z98.84 Bariatric surgery status
CPT/HCPCS: 99283; 73030; A9270

== ENCOUNTER → 2020-06-10 | Outpatient (CLI) | payer MEDICARE, OTHER ==
--- NOTE | 2020-06-10 14:12 | RADIOLOGY REPORT (SQ) ---
EXAM DESCRIPTION: CHEST PA/LATERAL IMAGES COMPLETED DATE/TIME: 06/10/2020 1:49 pm REASON FOR STUDY: CHRONIC OBSTRUCTIVE PULMONARY DISEASE, UNSPECIFIED COMPARISON: 11/01/2016. EXAM PARAMETERS: NUMBER OF VIEWS: two views TECHNIQUE: Digital Frontal and Lateral radiographic views of the chest acquired. RADIATION DOSE: NA LIMITATIONS: none FINDINGS: LUNGS AND PLEURA: No opacities, masses or pneumothorax. No pleural effusion. MEDIASTINUM AND HILAR STRUCTURES: No masses or contour abnormalities. HEART AND VASCULAR STRUCTURES: Heart normal size. No evidence for failure. BONES: No acute findings. Degenerative changes in the spine. HARDWARE: None in the chest. OTHER: No other significant finding. IMPRESSION: NO SIGNIFICANT RADIOGRAPHIC FINDING IN THE CHEST. TECHNICAL DOCUMENTATION: JOB ID: [id number] 2010 [employer]- All Rights Reserved Reading location - IP/workstation name: [email or web address]
== END ==
LOC: OD 10:53
PROVIDERS: ATTEND Nurse Practitioner Family
DX: J44.9 Chronic obstructive pulmonary disease, unspecified (principal)
CPT/HCPCS: 71046